=== PATIENT | male | born 1960 | race Caucasian/White ===

== ENCOUNTER 2020-12-22 11:41 | Outpatient (CLI) | payer MEDICARE ==
[2020-12-22 21:46] LABS: SARS-CoV-2 PCR by NAA Not Detected (NotDetected)
== END 2020-12-22 11:42 | disposition home or self-care (01) ==
LOC: LABBT 11:41
PROVIDERS: ATTEND Nurse Practitioner Adult Health
DX: Z01.812 Encounter for preprocedural laboratory examination (principal); R63.4 Abnormal weight loss; Z20.822 Contact with and (suspected) exposure to COVID-19
CPT/HCPCS: U0003; U0005; 87635

== ENCOUNTER 2020-12-26 10:29 | Day surgery (SDC) | payer MEDICARE, MEDICAID ==
[2020-12-25 10:06] VITALS: BMI 16.7
[2020-12-26] MEDS ORDERED: Midazolam HCl 2 mg/2 ml Vial ONE (11:51)
[2020-12-26] MEDS ORDERED: Triamcinolone 40 MG/ML VIAL ONE (11:52)
[2020-12-26] MEDS ORDERED: Ketamine 50 MG/ML (10ML VIAL) ONE (11:52)
[2020-12-26] MEDS ORDERED: Glycopyrrolate 0.2 MG/ML 5 ML SYRINGE ONE (12:09)
[2020-12-26] MEDS ORDERED: Iopamidol 370 76% 100 ML VIAL ONE (12:36)
== END 2020-12-26 15:05 | disposition home or self-care (01) ==
LOC: SDC/OP 10:29
DX: R63.4 Abnormal weight loss (principal); R60.1 Generalized edema; Q92.9 Trisomy and partial trisomy of autosomes, unspecified; F79 Unspecified intellectual disabilities; Z79.51 Long term (current) use of inhaled steroids; Z79.899 Other long term (current) drug therapy; Z88.8 Allergy status to other drugs, medicaments and biological substances
CPT/HCPCS: 74177; 82565; J2250; J3301; Q9967

== ENCOUNTER 2020-12-29 18:54 | Inpatient (IN) | payer OTHER, MEDICARE, MEDICAID ==
[2020-12-29 20:12] LABS: #Basophils 0.1 thou/uL (0.0-0.2); #Lymphocytes 1.3 thou/uL (1.20-3.40); #Monocytes 0.4 thou/uL (0.11-0.59); #Neutrophils 3.3 thou/uL (1.40-6.50); %Eosinophils 0.7 % (0.0-10.0); %Monocytes 7.2 % (0.0-10.0); %Neutrophils 65.2 % (42.0-75.0); Hemoglobin 13.9 g/dL (14.0-18.0); Mean Corpuscular HGB CONC 34.1 g/dL (32.0-36.0); Mean Corpuscular Hemoglobin 33.8 pg (27.0-31.0); Mean Corpuscular Volume 99.2 fL (78.0-98.0); Mean Platelet Volume 8.5 fL (7.4-10.4); Platelet Count 139 thou/uL (130-400); RBC Distribution Width 14.6 % (11.5-14.5); Red Blood Cell (RBC) Count 4.13 mill/uL (4.70-6.10); White Blood Cell (WBC) Count 5.1 thou/uL (4.8-10.8)
[2020-12-29 20:24] LABS: AST (SGOT) 215 U/L (5-34); Albumin 2.9 g/dL (3.4-4.8); Anion Gap 11 mmol/L (10-20); BUN (Urea Nitrogen) 22 mg/dL (8.4-25.7); Bilirubin, Total 0.3 mg/dL (0.2-1.2); Calc. Creatinine Clearance 0 mL/min (70-130); Calcium 8.9 mg/dL (7.8-10.44); Carbon Dioxide 28 mmol/L (23-31); Chloride 100 mmol/L (98-107); Globulin 3.5 g/dL (2.4-3.5); Glucose 76 mg/dL (80-115); Potassium 4.5 mmol/L (3.5-5.1); Protein, Total 6.4 g/dL (5.8-8.1); Sodium 134 mmol/L (136-145)
[2020-12-29 20:30] LABS: ALT (SGPT) 293 U/L (8-55); Alkaline Phosphatase 197 U/L (40-110)
[2020-12-29] MEDS ORDERED: Ondansetron ODT 4 MG TAB PO PRN (21:56)
[2020-12-29] MEDS ORDERED: HYDROcodone/Acetaminophen 5/325 mg Tablet PO PRN (21:56)
[2020-12-29] MEDS ORDERED: Acetaminophen 325 MG TAB PO PRN (21:56)
[2020-12-29] MEDS ORDERED: Ondansetron PF 4 MG/2 ML Vial IVP PRN (21:56)
[2020-12-29] MEDS ORDERED: Atropine Sulfate 1 mg/1 ml Vial IVP PRN (22:02)
[2020-12-29 22:30] VITALS: BMI 19.8
[2020-12-29 23:54] LABS: Troponin I 0.016 ng/mL (< 0.028)
[2020-12-30 03:03] LABS: Hemoglobin 14.1 g/dL (14.0-18.0); Mean Corpuscular HGB CONC 33.2 g/dL (32.0-36.0); Mean Corpuscular Hemoglobin 33.3 pg (27.0-31.0); Mean Platelet Volume 8.4 fL (7.4-10.4); Platelet Count 146 thou/uL (130-400); RBC Distribution Width 14.5 % (11.5-14.5); Red Blood Cell (RBC) Count 4.22 mill/uL (4.70-6.10); White Blood Cell (WBC) Count 3.9 thou/uL (4.8-10.8)
[2020-12-30 03:18] LABS: Troponin I Less than 0.010 ng/mL (< 0.028)
[2020-12-30 03:23] LABS: Band 6 % (5-11); Eosinophils 3 % (0-10); Lymphocytes 44 % (21-51); MDiff Complete? YES; Monocytes 6 % (0-10); Neutrophil 38 % (42-75); Reactive Lymphocytes 3 % (0-10)
[2020-12-30 04:28] LABS: HBSAg Index 0.14 S/CO (0-0.99); Hep B Surf Ag Non-Reactive S/CO (NonReactive); Hep C IgG Ab Non-Reactive (NonReactive); Hep C Index 0.12 S/CO (0-0.79)
[2020-12-30 04:29] LABS: HBCM Index 0.07 S/CO (0-0.79); Hep A IgM AB Non-Reactive (NonReactive); Hep A IgM S/CO 0.09 S/CO (0-0.79); Hepatitis B Core IgM Abs Non-Reactive (NonReactive)
[2020-12-30 04:37] LABS: Anion Gap 13 mmol/L (10-20); BUN (Urea Nitrogen) 22 mg/dL (8.4-25.7); Calc. Creatinine Clearance 41 mL/min (70-130); Calcium 9.1 mg/dL (7.8-10.44); Carbon Dioxide 30 mmol/L (23-31); Chloride 101 mmol/L (98-107); Magnesium 2.1 mg/dL (1.6-2.6); Potassium 4.6 mmol/L (3.5-5.1); Sodium 139 mmol/L (136-145)
[2020-12-30 04:42] LABS: Glucose 51 mg/dL (80-115)
[2020-12-30] MEDS ORDERED: Dextrose 5% in Water 1,000 ML IV PRN (05:00)
[2020-12-30] MEDS ORDERED: Dextrose 50% Abboject 50 ML SYRINGE IVP PRN (05:00)
[2020-12-30] MEDS ORDERED: Iopamidol 370 76% 100 ML VIAL ONE (08:54)
[2020-12-30] MEDS ORDERED: Atropine Sulfate 1 mg/1 ml Vial IVP PRN (10:07)
[2020-12-30 13:42] LABS: Free T4 (Free Thyroxine) 0.82 ng/dL (0.70-1.48); Thyroid Stimulating Hormone 11.6828 uIU/mL (0.35-4.94)
[2020-12-30] MEDS ORDERED: Levothyroxine Sodium 200 MCG VIAL IVP SCH (14:15)
[2020-12-30] MEDS ORDERED: Enoxaparin Sodium 30 MG/0.3 ML SYRINGE SC SCH (14:30)
[2020-12-30] MEDS: Dextrose 5 %-0.45 % NaCl 1,000 ML IV SCH (16:06)
[2020-12-30] MEDS: Piperacillin/Tazobactam 3.375 GM in Sodium Chloride 0.9% 100 ML IVPB SCH (16:07)
[2020-12-30] MEDS: Hydrocortisone Sod Succ/PF 100 mg/2 ml Vial IVP SCH (16:07)
[2020-12-30 21:28] LABS: SARS-CoV-2 PCR by NAA Not Detected (NotDetected)
[2020-12-31] MEDS: Hydrocortisone Sod Succ/PF 100 mg/2 ml Vial IVP SCH ×3 (00:43→16:59)
[2020-12-31] MEDS ORDERED: Levothyroxine 100 MCG SDV IVP SCH (00:45)
[2020-12-31] MEDS ORDERED: Sodium Chloride 0.9% 1,000 ML IV SCH ×2 (00:45→03:15)
[2020-12-31] MEDS: Dextrose 5 %-0.45 % NaCl 1,000 ML IV SCH ×3 (00:59→21:06)
[2020-12-31] MEDS: Piperacillin/Tazobactam 3.375 GM in Sodium Chloride 0.9% 100 ML IVPB SCH ×3 (02:21→17:00)
[2020-12-31] MEDS ORDERED: Norepinephrine 8 MG/0.9% NS 250 ML IVPB SCH (05:15)
[2020-12-31] MEDS: Enoxaparin Sodium 30 MG/0.3 ML SYRINGE SC SCH (08:07)
[2021-01-01] MEDS: Piperacillin/Tazobactam 3.375 GM in Sodium Chloride 0.9% 100 ML IVPB SCH ×4 (00:25→23:33)
[2021-01-01] MEDS: Hydrocortisone Sod Succ/PF 100 mg/2 ml Vial IVP SCH ×4 (00:25→23:33)
[2021-01-01] MEDS: Levothyroxine Sodium 88 MCG TAB PO SCH (05:51)
[2021-01-01] MEDS: Dextrose 5 %-0.45 % NaCl 1,000 ML IV SCH ×2 (08:30→20:07)
[2021-01-01] MEDS: Enoxaparin Sodium 30 MG/0.3 ML SYRINGE SC SCH (08:53)
[2021-01-02] MEDS: Levothyroxine Sodium 88 MCG TAB PO SCH (06:02)
[2021-01-02] MEDS: Dextrose 5 %-0.45 % NaCl 1,000 ML IV SCH ×2 (06:04→18:17)
[2021-01-02] MEDS: Enoxaparin Sodium 30 MG/0.3 ML SYRINGE SC SCH (09:24)
[2021-01-02] MEDS: Piperacillin/Tazobactam 3.375 GM in Sodium Chloride 0.9% 100 ML IVPB SCH (10:02)
[2021-01-02] MEDS: Hydrocortisone Sod Succ/PF 100 mg/2 ml Vial IVP SCH (10:02)
[2021-01-02 16:10] VITALS: BP 183/89
[2021-01-02] MEDS ORDERED: Mannitol 12.5 GM/50 ML SLOW IVP SCH (17:45)
[2021-01-02] MEDS ORDERED: Protamine Sulfate 50 MG/5 ML VIAL SLOW IVP SCH (17:45)
[2021-01-02 18:12] LABS: #Lymphocytes 1.6 thou/uL (1.20-3.40); #Monocytes 0.8 thou/uL (0.11-0.59); #Neutrophils 11.1 thou/uL (1.40-6.50); %Basophils 0.2 % (0.0-1.0); %Eosinophils 0.2 % (0.0-10.0); %Lymphocytes 12.1 % (21.0-51.0); %Monocytes 5.7 % (0.0-10.0); %Neutrophils 81.8 % (42.0-75.0); Hemoglobin 11.1 g/dL (14.0-18.0); Mean Corpuscular HGB CONC 29.9 g/dL (32.0-36.0); Mean Corpuscular Hemoglobin 29.3 pg (27.0-31.0); Mean Platelet Volume 8.9 fL (7.4-10.4); Platelet Count 131 thou/uL (130-400); RBC Distribution Width 14.6 % (11.5-14.5); Red Blood Cell (RBC) Count 3.79 mill/uL (4.70-6.10); White Blood Cell (WBC) Count 13.5 thou/uL (4.8-10.8)
[2021-01-02 18:30] LABS: MDiff Complete? YES; Platelet Morphology Comment Appears Adequate; Polychromasia SLIGHT = 2-3 cells (100X) (0-2/hpf)
[2021-01-02 18:37] LABS: ALT (SGPT) 216 U/L (8-55); AST (SGOT) 146 U/L (5-34); Albumin 2.6 g/dL (3.4-4.8); Alkaline Phosphatase 143 U/L (40-110); Anion Gap 10 mmol/L (10-20); BUN (Urea Nitrogen) 18 mg/dL (8.4-25.7); Bilirubin, Total 0.6 mg/dL (0.2-1.2); Calc. Creatinine Clearance 53 mL/min (70-130); Calcium 8.3 mg/dL (7.8-10.44); Carbon Dioxide 24 mmol/L (23-31); Chloride 110 mmol/L (98-107); Globulin 3.2 g/dL (2.4-3.5); Glucose 85 mg/dL (80-115); Potassium 4.2 mmol/L (3.5-5.1); Protein, Total 5.8 g/dL (5.8-8.1); Sodium 140 mmol/L (136-145)
[2021-01-02 18:42] LABS: PTT 32.8 sec (22.9-36.1); Prothrombin Time 12.9 sec (12.0-14.7)
[2021-01-03] MEDS: Dextrose 5 %-0.45 % NaCl 1,000 ML IV SCH (04:56)
[2021-01-03] MEDS: Levothyroxine Sodium 88 MCG TAB PO SCH (05:00)
[2021-01-03 10:25] VITALS: TEMP 97.7
== END 2021-01-03 10:32 | disposition expired | DRG 80 ==
LOC: ERS 18:54 → 2NO 21:08 → CCU 12-31 05:09 → 2NO 12-31 19:04 → CCU 01-02 17:37
PROVIDERS: ADMIT Internal Medicine; ATTEND Emergency Medicine
PROC: 3E033XZ Introduction of Vasopressor into Peripheral Vein, Percutaneous Approach (ICD-10-PCS; principal; 2020-12-31)
DX: E03.5 Myxedema coma (principal); G93.41 Metabolic encephalopathy; G93.5 Compression of brain; I50.22 Chronic systolic (congestive) heart failure; E87.1 Hypo-osmolality and hyponatremia; I42.9 Cardiomyopathy, unspecified; Z66 Do not resuscitate; R40.2214 Coma scale, best verbal response, none, 24 hours or more after hospital admission; R40.2314 Coma scale, best motor response, none, 24 hours or more after hospital admission; R40.2114 Coma scale, eyes open, never, 24 hours or more after hospital admission; Z20.822 Contact with and (suspected) exposure to COVID-19; R74.01 Elevation of levels of liver transaminase levels; R00.1 Bradycardia, unspecified; G47.33 Obstructive sleep apnea (adult) (pediatric); Q90.9 Down syndrome, unspecified; F81.9 Developmental disorder of scholastic skills, unspecified; E78.00 Pure hypercholesterolemia, unspecified; E03.9 Hypothyroidism, unspecified; G47.00 Insomnia, unspecified; E55.9 Vitamin D deficiency, unspecified; J30.9 Allergic rhinitis, unspecified; E78.5 Hyperlipidemia, unspecified; E86.9 Volume depletion, unspecified; K76.0 Fatty (change of) liver, not elsewhere classified; S00.03XA Contusion of scalp, initial encounter; E16.2 Hypoglycemia, unspecified; W18.30XA Fall on same level, unspecified, initial encounter; Y92.230 Patient room in hospital as the place of occurrence of the external cause; Z88.8 Allergy status to other drugs, medicaments and biological substances; Z79.899 Other long term (current) drug therapy; Z79.890 Hormone replacement therapy; Z79.51 Long term (current) use of inhaled steroids; I10 Essential (primary) hypertension; R57.1 Hypovolemic shock; D64.9 Anemia, unspecified
CPT/HCPCS: 36415; 36416; 70450; 71045; 74177; 74178; 76705; 80048; 80053; 80074; 82533; 82565; 83605; 83735; 83880; 84145; 84439; 84443; 84481; 84484; 85025; 85610; 85730; 87040; 93005; 93010; 93306; J0461; J1650; J1720; J2150; J2250; J2543; J2720; J3301; J3490; Q9967; U0003; U0005